=== PATIENT | female | born 1995 | race African-American/Black ===

== ENCOUNTER 2019-02-05 20:34 | Emergency (ER) | payer BC, OTHER ==
[~2019-02-05] VITALS: Ht 170.2 cm; Wt 81.6 kg
[~2019-02-05 20:34] MED LIST: NAPROSYN500 M1 ORAL
[2019-02-05] MEDS ORDERED: NKM (20:44)
--- NOTE | 2019-02-05 20:48 | NUR ---
ED Nurse Note: per pt she went to get her nails done yesterday and she started to feel itching and burning. on her hands and feet
[2019-02-05 20:49] VITALS: BP 124/83
--- NOTE | 2019-02-05 20:49 | NUR ---
ED Nurse Note: noted mild swelling in left and right toes
[2019-02-05] MEDS ORDERED: BACTRIM DS TAB1 EAC1 ORAL (21:11)
[2019-02-05] MEDS ORDERED: BENADRYL25 MG ORAL (21:11)
[2019-02-05] MEDS ORDERED: SILVADENE20 GM TP (21:11)
--- NOTE | 2019-02-05 21:11 | Emergency Room Report ---
History of Present Illness General Chief Complaint: Skin Rash/Abscess Source: Patient Present Illness HPI Is a 24-year-old female with no past medical history. She presents with chief complaint of rash. She had a pedicure done yesterday and today noticed that itching and blistering to her toes. She said that she had a chemical soaking there were scrubbing her skin. She also has some symptom to her fingernails now too. No fever chills. Very itchy. No trauma no drainage. Has some swelling to her feet. Allergies: Coded Allergies: No Known Allergies (Unverified , 01/08/14) Patient History Past Medical History: see triage record, old chart reviewed Past Surgical History: none Pertinent Family History: none Social History: Denies: smoking Last Menstrual Period: currently on period Now: No Immunizations: other Reviewed Nursing Documentation: PMH: Agreed; PSxH: Agreed Nursing Documentation-PM Past Medical History: No History, Except For Hx Asthma: Yes Review of Systems Eye: Denies: eye pain, blurred vision ENT: Denies: ear pain, nose congestion, throat swelling Respiratory: Denies: cough, shortness of breath Cardiovascular: Denies: chest pain, palpitations Gastrointestinal: Denies: abdominal pain, diarrhea, nausea, vomiting Musculoskeletal: Denies: back pain, joint pain Skin: Reports: rash Neurological: Denies: headache, numbness Endocrine: Denies: increased thirst, increased urine Hematologic/Lymphatic: Denies: easy bruising All Other Systems: negative except mentioned in HPI Physical Exam Vital Signs Date Time Temp Pulse Resp B/P (MAP) Pulse Ox O2 Delivery O2 Flow Rate FiO2 02/05/19 20:41 98.4 74 18 124/83 98 Room Air vitals normal Sp02 EP Interpretation: reviewed, normal General Appearance: well appearing, no apparent distress, alert Head: normocephalic, atraumatic Eyes: bilateral eye PERRL, bilateral eye EOMI ENT: hearing grossly normal, normal pharynx Neck: full range of motion, supple, no meningismus Respiratory: chest non-tender, lungs clear, normal breath sounds Cardiovascular #1: regular rate, rhythm, no murmur Gastrointestinal: normal bowel sounds, non tender, no mass, no organomegaly, no bruit, non-distended Musculoskeletal: back normal, gait/station normal, normal range of motion, other - Feet: She has 1 cm blister at the base of the cuticle of the third and fourth toes on the left. There are mild blistering on the right side. She has generalized edema to the foot. Mild warmth. Neurologic: alert, oriented x3 Psychiatric: mood/affect normal Skin: warm/dry Medical Decision Making Diagnostic Impression: Primary Impression: Chemical burn of toe of left foot Qualified Codes: T25.632A - Corrosion of second degree of left toe(s) (nail), initial encounter Additional Impressions: Chemical burn of toe of right foot Qualified Codes: T25.631A - Corrosion of second degree of right toe(s) (nail) , initial encounter Cellulitis Qualified Codes: L03.90 - Cellulitis, unspecified ER Course Patient presents with what appear to be a chemical burn. No evidence of necrotizing fasciitis. May have secondary cellulitis. We'll cover with antibiotic ointment and antibiotics orally. Last Vital Signs Date Time Temp Pulse Resp B/P (MAP) Pulse Ox O2 Delivery O2 Flow Rate FiO2 02/05/19 20:49 98.4 74 18 124/83 98 Room Air Status: improved Disposition: HOME, SELF-CARE Condition: Stable Scripts Trimethoprim/Sulfamethoxazole 160/800* (BACTRIM DS TABLET*) 1 Each Tablet 1 TAB ORAL Q12H, #14 TAB 0 Refills Prov: Rico Casper MD 02/05/19 Silver Sulfadiazine (SILVADENE) 20 Gm Cream..g. 1 GM TP BID, #20 GM Prov: Rico Casper MD 02/05/19 Diphenhydramine Hcl* (BENADRYL*) 25 Mg Capsule 50 MG ORAL Q6H PRN for Itching, #30 CAP Prov: Rico Casper MD 02/05/19 Additional Instructions: Keep wound clean. Follow-up with your doctor in 2-3 days or recheck. Return if worse. Rico Casper MD Feb 05, 2019 21:11
[2019-02-05 21:16] VITALS: BP 124/83
--- NOTE | 2019-02-05 21:16 | NUR ---
ER DISCHARGE NOTE: Patient is cleared to be discharged per ERMD, pt is aox4, on room air, with stable vital signs. pt was given dc and prescription instructions, pt was able to verbalize understanding, pt id band removed. pt is able to ambulate with steady gait. pt took all belongings.
== END 2019-02-05 21:16 | disposition home or self-care (01) ==
LOC: EMR 21:05
DX: T25.632A Corrosion of second degree of left toe(s) (nail), initial encounter (principal); T25.631A Corrosion of second degree of right toe(s) (nail), initial encounter; L03.90 Cellulitis, unspecified; X58.XXXA Exposure to other specified factors, initial encounter; Y92.89 Other specified places as the place of occurrence of the external cause
CPT/HCPCS: 99282

== ENCOUNTER 2019-05-27 09:44 | Emergency (ER) | payer OTHER ==
[~2019-05-27] VITALS: Ht 170.2 cm; Wt 83.0 kg
[~2019-05-27 09:44] MED LIST changes: +BACTRIM DS TAB1 EAC1 ORAL; +BENADRYL25 MG ORAL; +NKM; +SILVADENE20 GM TP
[2019-05-27] MEDS ORDERED: VENTOLIN HFA18 GM INH (09:54)
[2019-05-27 09:55] VITALS: BP 122/82
--- NOTE | 2019-05-27 09:56 | NUR ---
ED Nurse Note: Patient walked in to ER c/o vaginal odor for 3-4 days . Patient alert and oriented x4 and ambulatory. skin clean and intact. calm and cooperative. pt denied difficulty or pain to urinate and vagianl changes.
[2019-05-27 10:36] LABS: APPEARANCE,URINE CLOUDY; BILIRUBIN, URINE NEGATIVE (NEGATIVE); COLOR,URINE PALE YELLOW; GLUCOSE, URINE (UA) NEGATIVE (NEGATIVE); KETONES,URINE NEGATIVE (NEGATIVE); LEUKOCYTE ESTERASE ,URINE 1+ (NEGATIVE); NITRITE,URINE NEGATIVE (NEGATIVE); PH,URINE 8 (4.5-8.0); PROTEIN,URINE NEGATIVE (NEGATIVE); UROBILINOGEN,URINE NORMAL MG/DL (0.0-1.0)
[2019-05-27] MEDS ORDERED: METRONIDAZOLE500 MG ORAL (10:43)
--- NOTE | 2019-05-27 10:43 | NUR ---
ED Nurse Note: pelvic exam done with 1 female RN.
--- NOTE | 2019-05-27 10:46 | Emergency Room Report ---
History of Present Illness General Chief Complaint: Female Urogenital Problems Source: Patient Present Illness HPI Patient is a 24-year-old female presented after increased vaginal odor. Patient says stated this occurred for the past 3 to 4 days. She denies any fever. She denies any vaginal discharge. She denies any pelvic pain. She reports having recent intercourse approximately 2 weeks ago. She denies any abnormal menses.She states she last had a Pap smear approximately 3 years ago. Allergies: Coded Allergies: No Known Allergies (Unverified , 01/08/14) Patient History Past Medical History: see triage record Last Menstrual Period: 05/2019 Now: No Reviewed Nursing Documentation: PMH: Agreed; PSxH: Agreed Nursing Documentation-PMH Past Medical History: No History, Except For Hx Asthma: Yes Review of Systems All Other Systems: negative except mentioned in HPI Physical Exam Vital Signs Date Time Temp Pulse Resp B/P (MAP) Pulse Ox O2 Delivery O2 Flow Rate FiO2 05/27/19 09:50 98.8 76 15 122/82 (95) 98 Room Air General Appearance: well appearing, no apparent distress, alert, GCS 15 Head: normocephalic, atraumatic ENT: hearing grossly normal, normal voice Neck: full range of motion, supple Respiratory: no respiratory distress, speaking full sentences Gastrointestinal: normal inspection, soft, no mass Genitourinary: normal inspection, os closed Musculoskeletal: normal inspection Neurologic: normal inspection, alert, oriented x3, responsive, normal gait Psychiatric: normal inspection, mood/affect normal Skin: no rash Medical Decision Making Diagnostic Impression: Primary Impression: Bacterial vaginosis ER Course Patient presented for vaginal odor. Differential diagnosis include was not limited to bacterial vaginosis, trichomonas, pelvic inflammatory disease, retained tampon among others. Patient has a benign exam and does not appear to require any further imaging or laboratory testing at this time. Patency test was noted to be negative. Urinalysis showed no evidence of urinary infection. Pelvic exam showed no cervical motion tenderness and no significant discharge. Patient was given prescription for metronidazole for presumed bacterial vaginosis. she is advised not to drink alcohol. Last Vital Signs Date Time Temp Pulse Resp B/P (MAP) Pulse Ox O2 Delivery O2 Flow Rate FiO2 05/27/19 09:55 98.8 68 15 122/82 98 Room Air Status: improved Disposition: HOME, SELF-CARE Condition: Stable Scripts Metronidazole* (FLAGYL*) 500 Mg Tablet 500 MG ORAL BID, #14 TAB Prov: Yomi Gilbert MD 05/27/19 Patient Instructions: Bacterial Vaginosis Yomi Gilbert MD May 27, 2019 10:46
[2019-05-27 10:52] VITALS: BP 122/82
== END 2019-05-27 10:52 | disposition home or self-care (01) ==
LOC: EMR 10:50
DX: N76.0 Acute vaginitis (principal)
CPT/HCPCS: 81003; 81025; 99283

== ENCOUNTER 2019-10-11 17:20 | Emergency (ER) | payer OTHER ==
[~2019-10-11] VITALS: Ht 170.2 cm; Wt 84.8 kg
[~2019-10-11 17:20] MED LIST changes: +METRONIDAZOLE500 MG ORAL; +VENTOLIN HFA18 GM INH
[2019-10-11 17:30] VITALS: BP 140/80
--- NOTE | 2019-10-11 17:30 | NUR ---
ED Nurse Note: PT AMBUALTED TO ED FROM C/O VAGINAL ITCHING, FREQUENCY IN URINATION, AND SPOTTING. PT STATES LMP WAS 2 WEEKS AGO. PT IS SEXUALLY ACTIVE AND STATES "I WANT TO MAKE SURE I DONT CONTRACT ANYTHING AND MY COUGH BOTHER ME TOO. I ALSO NEED A REFILL FOR MY INHALER" Addendum: 10/11/19 at 1805 by PDELEON ED Nurse Note: PT AMBUALTED TO ED FROM HOME C/O VAGINAL ITCHING, FREQUENCY IN URINATION, AND SPOTTING. PT STATES LMP WAS 2 WEEKS AGO. PT IS SEXUALLY ACTIVE AND STATES "I WANT TO MAKE SURE I DONT CONTRACT ANYTHING AND MY COUGH BOTHERS ME TOO. I ALSO NEED A REFILL FOR MY INHALER"
--- NOTE | 2019-10-11 17:31 | NUR ---
ED Nurse Note: PT URINE SPECIMEN COLLECTED; SENT TO LAB
[2019-10-11 18:01] LABS: APPEARANCE,URINE CLEAR; BILIRUBIN, URINE NEGATIVE (NEGATIVE); GLUCOSE, URINE (UA) NEGATIVE (NEGATIVE); KETONES,URINE NEGATIVE (NEGATIVE); LEUKOCYTE ESTERASE ,URINE 1+ (NEGATIVE); NITRITE,URINE NEGATIVE (NEGATIVE); PH,URINE 6.5 (4.5-8.0); PROTEIN,URINE NEGATIVE (NEGATIVE); UROBILINOGEN,URINE NORMAL MG/DL (0.0-1.0)
[2019-10-11 18:02] LABS: COLOR,URINE YELLOW
--- NOTE | 2019-10-11 18:05 | NUR ---
ED Nurse Note: RT AT BEDSIDE
[2019-10-11] MEDS ORDERED: ALBUTEROL SULF8.5 GM INH (18:13)
[2019-10-11] MEDS ORDERED: Albuterol/Ipratropium 3ml neb HHN ONE (18:15)
[2019-10-11 18:17] VITALS: BP 137/78
--- NOTE | 2019-10-11 18:27 | Emergency Room Report ---
History of Present Illness General Chief Complaint: General Complaint Source: Patient, Medical Record Present Illness HPI Patient is a 24-year-old female presents after increased cough. She had prior history of asthma. She had no recent hospitalizations. She had not been using steroids regularly. Reports having increased nasal congestion and nonproductive cough. Denies any fever. Reports having some increased hematuria. Denies any abdominal pain. She had not been vomiting. She denies being Allergies: Coded Allergies: No Known Allergies (Unverified , 01/08/14) Patient History Past Medical History: see triage record Last Menstrual Period: 09/24/2019 Now: No : 0 Reviewed Nursing Documentation: PMH: Agreed; PSxH: Agreed Nursing Documentation-PMH Hx Asthma: Yes Review of Systems All Other Systems: negative except mentioned in HPI Physical Exam Vital Signs Date Time Temp Pulse Resp B/P (MAP) Pulse Ox O2 Delivery O2 Flow Rate FiO2 10/11/19 17:26 98.8 73 18 140/80 (100) 100 Room Air 10/11/19 18:11 21 Sp02 EP Interpretation: reviewed, normal General Appearance: normal inspection, well appearing, no apparent distress, alert, GCS 15 Head: atraumatic ENT: normal ENT inspection, hearing grossly normal, normal voice Neck: normal inspection, full range of motion, supple, no bony tend Respiratory: normal inspection, normal breath sounds, no respiratory distress, no retraction, no accessory muscle use, wheezing Cardiovascular #1: regular rate, rhythm, no edema Gastrointestinal: normal inspection, normal bowel sounds, non tender, soft, no guarding, no hernia Genitourinary: no CVA tenderness Musculoskeletal: normal inspection, back normal, normal range of motion Neurologic: alert, motor strength/tone normal, gallery intern III-XII nml as tested, oriented x3, responsive, speech normal, normal inspection Psychiatric: normal inspection, judgement/insight normal, mood/affect normal Medical Decision Making Diagnostic Impression: Primary Impression: Asthma ER Course Patient is a 24-year-old female presents after increased difficulty breathing. differential diagnosis include was not limited to asthma exacerbation, pneumonia, bronchitis among others. Patient has a benign exam and does not appear to require any imaging or laboratory testing at this time. The patient was given breathing treatments with with improvement in respiratory status. A repeat exam showed diminished wheezing. Patient was advised followup with primary care physician for reevaluation one to 2 days. Patient was to return for increased productive cough, hemoptysis, increased difficulty breathing or other concerns. Patient is given prescription for inhaler. She was advised to follow-up with her primary care physician for work further work-up of hematuria. Labs Test 10/11/19 16:36 Urine Color Yellow Urine Appearance Clear Urine pH 6.5 (4.5-8.0) Urine Specific [place] 1.020 (1.005-1.035) Urine Protein Negative (NEGATIVE) Urine Glucose (UA) Negative (NEGATIVE) Urine Ketones Negative (NEGATIVE) Urine Blood 4+ (NEGATIVE) Urine Nitrite Negative (NEGATIVE) Urine Bilirubin Negative (NEGATIVE) Urine Urobilinogen Normal MG/DL (0.0-1.0) Urine Leukocyte Esterase 1+ (NEGATIVE) Urine RBC 5-10 /HPF (0 - 2) Urine WBC 0-2 /HPF (0 - 2) Urine Squamous Epithelial Cells Few /LPF (NONE/OCC) Urine Amorphous Sediment Few /LPF (NONE) Urine Bacteria Few /HPF (NONE) Urine HCG, Qualitative Negative (NEGATIVE) Last Vital Signs Date Time Temp Pulse Resp B/P (MAP) Pulse Ox O2 Delivery O2 Flow Rate FiO2 10/11/19 18:17 98.6 80 17 137/78 98 Room Air 21 Status: improved Disposition: HOME, SELF-CARE Condition: Stable Scripts Albuterol Sulfate* (ALBUTEROL SULFATE MDI*) 8.5 Gm Hfa.aer.ad 2 PUFF INH Q6H, #1 EA 0 Refills Prov: Yomi Gilbert MD 10/11/19 Patient Instructions: Asthma, Adult Yomi Gilbert MD Oct 11, 2019 18:27
== END 2019-10-11 18:17 | disposition home or self-care (01) ==
LOC: EMR 17:55
DX: J45.909 Unspecified asthma, uncomplicated (principal)
CPT/HCPCS: 81003; 81025; 94640; 99283; J7620

== ENCOUNTER 2019-10-26 17:13 | Emergency (ER) | payer OTHER ==
[~2019-10-26] VITALS: Ht 170.2 cm; Wt 83.9 kg
[~2019-10-26 17:13] MED LIST changes: +ALBUTEROL SULF8.5 GM INH
[2019-10-26 17:15] VITALS: BP 129/89
--- NOTE | 2019-10-26 17:15 | NUR ---
ED Nurse Note: PAtient came into ER because patient believes she is . Pt states she is late 4 days of her menstraul cycle. Pt is aaox4, on room air with stable vital signs.
[2019-10-26 17:22] VITALS: BP 129/77
[2019-10-26 17:55] LABS: APPEARANCE,URINE CLEAR; BILIRUBIN, URINE NEGATIVE (NEGATIVE); COLOR,URINE PALE YELLOW; GLUCOSE, URINE (UA) NEGATIVE (NEGATIVE); KETONES,URINE NEGATIVE (NEGATIVE); LEUKOCYTE ESTERASE ,URINE NEGATIVE (NEGATIVE); NITRITE,URINE NEGATIVE (NEGATIVE); PH,URINE 6 (4.5-8.0); PROTEIN,URINE NEGATIVE (NEGATIVE); UROBILINOGEN,URINE NORMAL MG/DL (0.0-1.0)
--- NOTE | 2019-10-26 18:05 | Emergency Room Report ---
History of Present Illness General Chief Complaint: Female Urogenital Problems Source: Patient Present Illness HPI 24-year-old female with no significant past medical history here requesting a test. Patient reports that her last menstrual period was 09/28/2019, and was last sexually active on October 11, 2019. Patient denies any vaginal bleeding, spotting, abdominal pain, cramping. Has not taken in home test. Denies nausea vomiting, chest pain, shortness of breath, palpitation, headache and dizziness at this time. Patient has no complaint and only requesting to be tested for . Denies tobacco smoke, alcohol intake. Reports that she has been in the past. Allergies: Coded Allergies: No Known Allergies (Unverified , 01/08/14) Patient History Past Medical History: see triage record Past Surgical History: unable to obtain Pertinent Family History: none Last Menstrual Period: 09/28/19 Now: No Immunizations: UTD Reviewed Nursing Documentation: PMH: Agreed; PSxH: Agreed Nursing Documentation-PMH Past Medical History: No History, Except For Hx Asthma: Yes Review of Systems All Other Systems: negative except mentioned in HPI Physical Exam Vital Signs Date Time Temp Pulse Resp B/P (MAP) Pulse Ox O2 Delivery O2 Flow Rate FiO2 10/26/19 17:15 99.0 85 20 129/89 100 Room Air Sp02 EP Interpretation: reviewed, normal General Appearance: no apparent distress, alert, GCS 15, non-toxic Head: normocephalic, atraumatic Eyes: bilateral eye normal inspection, bilateral eye PERRL ENT: hearing grossly normal, normal pharynx, no angioedema, normal voice Neck: full range of motion, supple/symm/no masses Respiratory: chest non-tender, lungs clear, normal breath sounds, no rhonchi, no respiratory distress, no wheezing, speaking full sentences Cardiovascular #1: regular rate, rhythm, no edema, no murmur Gastrointestinal: non tender, soft, no mass Rectal: deferred Genitourinary: no CVA tenderness Musculoskeletal: back normal, normal range of motion Neurologic: motor strength/tone normal, case finisher III-XII nml as tested, EOM palsy, oriented, DTRs symmetric Psychiatric: judgement/insight normal, memory normal, mood/affect normal, no suicidal/homicidal ideation Skin: no rash Lymphatic: no adenopathy Medical Decision Making PA Attestation All my diagnosis and treatment plans were reviewed ad discussed with my supervising physician Dr. Gilbert Diagnostic Impression: Primary Impression: Positive urine test ER Course 24-year-old female with no significant past medical history here requesting a test. Patient reports that her last menstrual period was 09/28/2019, and was last sexually active on October 11, 2019. Patient denies any vaginal bleeding, spotting, abdominal pain, cramping. Has not taken in home test. Denies nausea vomiting, chest pain, shortness of breath, palpitation, headache and dizziness at this time. Patient has no complaint and only requesting to be tested for . Denies tobacco smoke, alcohol intake. Reports that she has been in the past. Ddx considered but are not limited to: Positive urine test, intrauterine without complication, intrauterine with complication, UTI during , threatened , spontaneous Vital signs: are WNL, pt. is afebrile H&PE are most consistent with: Positive urine test ORDERS: UA, urine test, vitamins ED INTERVENTIONS: None required at this time. DISCHARGE: At this time pt. is stable for d/c to home. Will provide printed patient care instructions, and any necessary prescriptions. Care plan and follow up instructions have been discussed with the patient prior to discharge. At this time since patient is asymptomatic, has no complaint, no vaginal bleeding or spotting, no urinary frequency and urgency, no abdominal cramping patient to follow-up with [facility] SAL[facility]NAGER. No further imaging or blood work is needed at this time. [facility] patient is finding out about being . I gave patient a list of women's clinics to go to and get evaluated for her . Patient appears to be approximately 4 weeks . Advised patient return to the emergency room if abdominal pain, cramping, vaginal bleeding or spotting. Last Vital Signs Date Time Temp Pulse Resp B/P (MAP) Pulse Ox O2 Delivery O2 Flow Rate FiO2 10/26/19 17:22 99.0 82 17 129/77 (94) 99 Room Air Disposition: HOME, SELF-CARE Condition: Stable Scripts No.137/Iron/Folic Acd ( Vitamin Tablet) 1 Each Tablet 1 TAB PO DAILY, #30 TAB Prov: Estrella Delong 10/26/19 Patient Instructions: Test Information Additional Instructions: Follow-up with [facility] SALES MANAGER for further work-up start taking vitamins today. If worsening symptoms return to the emergency room. Estrella Delong Oct 26, 2019 18:05
[2019-10-26] MEDS ORDERED: PRENATAL VITAM1 EA10 PO (18:06)
--- NOTE | 2019-10-26 18:26 | NUR ---
ED Nurse Note: Patient is being discharged from medical care. Prescription and clinic information given. Patient verbalized understanding of it. Ambulated out with steady gait.
== END 2019-10-26 18:25 | disposition home or self-care (01) ==
LOC: EMR 17:53
DX: O26.90 Pregnancy related conditions, unspecified, unspecified trimester (principal); Z3A.00 Weeks of gestation of pregnancy not specified
CPT/HCPCS: 81003; 81025; 99282

== ENCOUNTER 2020-02-16 11:40 | Emergency (ER) | payer OTHER ==
[~2020-02-16] VITALS: Ht 170.2 cm; Wt 83.0 kg
[~2020-02-16 11:40] MED LIST changes: +PRENATAL VITAM1 EA10 PO
--- NOTE | 2020-02-16 12:03 | NUR ---
ED Nurse Note: A/OX4. REPORTS HAVING VAGINAL BLEED X3 MONTHS AFTER TAKING PILLS (MIFEPRINSONE AND MISOPROSTOL) IN NOVEMBER 11, 2019. PER PT, SHE WAS 6WKS THEN AND CHANGING 6-7 PADS PER DAY. BREATHING NORMAL/EVEN/UNLABORED SKIN WARM/DRY/INTACT. DENIES ANY PAIN. NAD NOTED
[2020-02-16 12:22] LABS: ANION GAP 10 mmol/L (5-15); BLOOD UREA NITROGEN 15 mg/dL (7-18); CARBON DIOXIDE 24 MMOL/L (21-32); CHLORIDE 106 MMOL/L (98-107); CREATININE 0.9 MG/DL (0.55-1.30); POTASSIUM 3.9 MMOL/L (3.5-5.1); SODIUM 140 MMOL/L (136-145)
[2020-02-16 12:24] LABS: ALANINE AMINOTRANSFERASE 19 U/L (12-78); ALBUMIN 3.8 G/DL (3.4-5.0); ALBUMIN/GLOBULIN RATIO 1.1 (1.0-2.7); ALKALINE PHOSPHATASE 58 U/L (46-116); ASPARTATE AMINO TRANSFERASE 13 U/L (15-37); BILIRUBIN,TOTAL 0.2 MG/DL (0.2-1.0)
[2020-02-16 12:40] LABS: BASOPHILS % (AUTO) 0.7 % (0.0-2.0); EOSINOPHILS % (AUTO) 3.4 % (0.0-3.0); HEMATOCRIT 32.8 % (37.0-47.0); LYMPHOCYTES % (AUTO) 28.8 % (20.0-45.0); MEAN CORPUSCULAR VOLUME 67 FL (80-99); MONOCYTES % (AUTO) 8.3 % (1.0-10.0); NEUTROPHILS % (AUTO) 58.8 % (45.0-75.0); PLATELET COUNT 281 K/UL (150-450); RED BLOOD COUNT 4.93 M/UL (4.20-5.40); RED CELL DISTRIBUTION WIDTH 15.9 % (11.6-14.8); WHITE BLOOD COUNT 8.5 K/UL (4.8-10.8)
--- NOTE | 2020-02-16 12:40 | NUR ---
ED Nurse Note: US tech by bed side
--- NOTE | 2020-02-16 12:45 | Emergency Room Report ---
History of Present Illness General Chief Complaint: Complications Source: Patient Present Illness HPI 25-year-old female with no significant past medical history here complaining of 3 months of continuous bleeding after she took misoprostol for termination of her 3 months ago. Patient reports that she was 6 weeks when she took the medication. Has followed up with the renal clinic however has not had any improvement in terms of bleeding. Reports in the past week she has had increased bleeding, clotting, changing 6-7 pads a day. Denies being sexually active in the past 3 months. Reports that she is also anemic however has not been taking her iron pills. Denies lightheadedness, chest pain, shortness of breath, palpitation, abdominal pain, headache and dizziness. Denies nausea vomiting. Denies shortness of breath, cough and congestion. Denies fever and chills. Denies at this time. Denies tobacco smoke, drug use. Allergies: Coded Allergies: No Known Allergies (Unverified , 01/08/14) COVID-19 Screening Contact w/high risk pt: No Recent Travel to affected area: No Experienced COVID-19 symptoms?: No Patient History Past Medical History: see triage record Past Surgical History: none Pertinent Family History: none Now: No Immunizations: UTD Reviewed Nursing Documentation: PMH: Agreed; PSxH: Agreed Nursing Documentation-PMH Hx Asthma: Yes Review of Systems All Other Systems: negative except mentioned in HPI Physical Exam Vital Signs Date Time Temp Pulse Resp B/P (MAP) Pulse Ox O2 Delivery O2 Flow Rate FiO2 02/16/20 11:45 98.1 79 19 128/82 (97) 100 Room Air Sp02 EP Interpretation: reviewed, normal General Appearance: no apparent distress, alert, GCS 15, non-toxic Head: normocephalic, atraumatic Eyes: bilateral eye normal inspection, bilateral eye PERRL ENT: hearing grossly normal, normal pharynx, no angioedema, normal voice Neck: full range of motion, supple/symm/no masses Respiratory: chest non-tender, lungs clear, normal breath sounds, no rhonchi, no retraction, no wheezing, speaking full sentences Cardiovascular #1: regular rate, rhythm, no edema, no murmur Gastrointestinal: normal bowel sounds, non tender, soft, non-distended, no guarding, no rebound Rectal: deferred Genitourinary: no CVA tenderness Musculoskeletal: back normal, digits/nails normal Neurologic: alert, motor strength/tone normal, oriented x3, sensory intact, responsive, speech normal Psychiatric: judgement/insight normal, memory normal, mood/affect normal, no suicidal/homicidal ideation Skin: no rash Lymphatic: no adenopathy Medical Decision Making PA Attestation All diagnoses and treatment plans were reviewed and discussed with my supervising physician Dr. Echols Diagnostic Impression: Primary Impression: Uterine fibroid Additional Impressions: Ovarian cyst Iron deficiency anemia ER Course 25-year-old female with no significant past medical history here complaining of 3 months of continuous bleeding after she took misoprostol for termination of her 3 months ago. Patient reports that she was 6 weeks when she took the medication. Has followed up with the renal clinic however has not had any improvement in terms of bleeding. Reports in the past week she has had increased bleeding, clotting, changing 6-7 pads a day. Denies being sexually active in the past 3 months. Reports that she is also anemic however has not been taking her iron pills. Denies lightheadedness, chest pain, shortness of breath, palpitation, abdominal pain, headache and dizziness. Denies nausea vomiting. Denies shortness of breath, cough and congestion. Denies fever and chills. Denies at this time. Denies tobacco smoke, drug use. Ddx considered but are not limited to: Uterine fibroids, dysfunctional uterine bleeding, spontaneous , ectopic , ovarian cyst Vital signs: are WNL, pt. is afebrile H&PE are most consistent with: uterine fibroid, ovarian cyst, iron deficiency anemia ORDERS: UA, urine , CBC, CMP, pelvic ultrasound, tylenol, motrin ED INTERVENTIONS: NS bolus DISCHARGE: At this time pt. is stable for d/c to home. Will provide printed patient care instructions, and any necessary prescriptions. Care plan and follow up instructions have been discussed with the patient prior to discharge. Patient to follow-up with RETURNED CASE INSPECTOR, continue taking ferrous sulfate as has iron deficiency anemia. If worsening symptoms return to emergency room CT/MRI/US Diagnostic Results CT/MRI/US Diagnostic Results : Imaging Test Ordered: Pelvic ultrasound Impression Bilateral ovarian cyst, uterine fibroids Last Vital Signs Date Time Temp Pulse Resp B/P (MAP) Pulse Ox O2 Delivery O2 Flow Rate FiO2 02/16/20 11:45 98.1 79 19 128/82 (97) 100 Room Air Disposition: HOME, SELF-CARE Condition: Stable Referrals: [facility] (PCP) Patient Instructions: Iron Deficiency Anemia, Adult, Ovarian Cyst, [id number] , Uterine Fibroids, [id number] Additional Instructions: Patient to follow-up with RETURNED CASE INSPECTOR, continue taking ferrous sulfate as has iron deficiency anemia. If worsening symptoms return to emergency room Estrella Delong Feb 16, 2020 12:45
[2020-02-16 13:38] LABS: APPEARANCE,URINE CLOUDY; BILIRUBIN, URINE NEGATIVE (NEGATIVE); COLOR,URINE PALE YELLOW; GLUCOSE, URINE (UA) NEGATIVE (NEGATIVE); KETONES,URINE NEGATIVE (NEGATIVE); LEUKOCYTE ESTERASE ,URINE 1+ (NEGATIVE); NITRITE,URINE NEGATIVE (NEGATIVE); PH,URINE 6 (4.5-8.0); PROTEIN,URINE 2+ (NEGATIVE); UROBILINOGEN,URINE NORMAL MG/DL (0.0-1.0)
[2020-02-16] MEDS ORDERED: TYLENOL EXTRA500 MG ORAL (13:39)
[2020-02-16] MEDS ORDERED: IBUPROFEN400 MG ORAL (13:39)
[2020-02-16 13:50] VITALS: BP 115/74
--- NOTE | 2020-02-16 13:51 | NUR ---
ED Nurse Note: Pt cleared by health care Provider for discharge. Denies any pain at this time. DC instructions/prescription was given and explained to pt and verbalized understanding of teachings. All medical deviecs such as ID band and IV removed. Pt is AAO x4, ambulatory and left with all personal belongings.
--- NOTE | 2020-02-16 15:24 | Diagnostic Imaging Report ---
Indication: Pelvic bleeding x3 months, history of recent pharmaceutical . Negative urine test Technique: Transabdominal and transvaginal images Comparison: none Findings: Uterus is retroflexed, measures 7.8 cm length by 3.5 cm AP. The endometrium measures 3 mm thick. Myometrium demonstrates a few small fibroids measuring up to 2 cm in diameter. There is trace free cul-de-sac fluid. The right ovary measures 3.7 cm length. Left ovary measures 2.8 cm in length. No mass demonstrated. 3 cm presumed right ovarian dominant follicle noted. Both ovaries demonstrate normal flow on Doppler Impression: Probable small uterine fibroids. Otherwise unremarkable Free cul-de-sac fluid, presumably physiologic
== END 2020-02-16 13:56 | disposition home or self-care (01) ==
LOC: EMR 12:22
DX: D25.9 Leiomyoma of uterus, unspecified (principal); N83.209 Unspecified ovarian cyst, unspecified side; D50.9 Iron deficiency anemia, unspecified
CPT/HCPCS: 36415; 76830; 76856; 80053; 81003; 81025; 83690; 85025; 96360; 99284; J7030